=== PATIENT | female | born 1990 | race American Indian/Alaskan Native ===

== ENCOUNTER 2020-05-31 05:58 | Outpatient (CLI) | payer OTHER ==
--- NOTE | 2020-05-31 07:42 | Ultrasound Report ---
LIMITED OB ULTRASOUND INDICATION: Vaginal bleeding, no movement FINDINGS: There is a single intrauterine in a breech presentation. Amniotic fluid index is 16.1 cm. T he placenta is located in the right lateral uterus. The placenta is grade 2. No previa is seen. Cervix measures 4.1 cm in length. There is no evidence of abruption. heart rate is 154 bpm. IMPRESSION: No abruption or previa is seen. heart rate is 154 bpm. Amniotic fluid index is 16.1 cm BIOPHYSICAL PROFILE INDICATION: No movement, vaginal bleeding COMPARISON: None FINDINGS: breathing movement: 2/2 movement: 2/2 posture and tone: 2/2 Qualitative amniotic fluid volume: 2/2 IMPRESSION: Total score for biophysical profile is 8/8 heart rate is 154 bpm Signer Name: Stoney Watson MD Signed: 05/31/2020 7:38 AM Workstation Name: [id number]
[2020-05-31 08:31] VITALS: BP 132/73
[2020-05-31 08:45] LABS: Bacteria,Urine 1+ /HPF (Negative); Bilirubin,Urine NEG (Negative); Blood,Urine LG (Negative); Color,Urine Yellow (Yellow); Hyaline Casts,Urine 1 /LPF; Mucus,Urine 1+ /HPF; Protein,Urine <15 mg/dL mg/dL (Negative); Urobilinogen,Urine < 2.0 mg/dL (<2.0)
== END 2020-05-31 09:25 | disposition home or self-care (01) ==
LOC: TRG 05:58 → APU 06:09 → TRG 09:25
PROVIDERS: ATTEND Obstetrics & Gynecology
DX: O46.8X3 Other antepartum hemorrhage, third trimester (principal); Z3A.35 35 weeks gestation of pregnancy
CPT/HCPCS: 59025; 76815; 76819; 81001

== ENCOUNTER 2020-07-01 23:24 | Outpatient (CLI) | payer OTHER ==
[2020-07-02 00:36] VITALS: BP 124/79
== END 2020-07-02 00:44 | disposition home or self-care (01) ==
LOC: APU 07-02 00:19 → TRG 07-02 00:44
PROVIDERS: ATTEND Obstetrics & Gynecology
DX: O26.893 Other specified pregnancy related conditions, third trimester (principal); R06.02 Shortness of breath; Z3A.39 39 weeks gestation of pregnancy
CPT/HCPCS: 59025

== ENCOUNTER 2020-07-11 11:02 | Outpatient (CLI) | payer OTHER ==
[2020-07-11 14:55] VITALS: BP 132/60
--- NOTE | 2020-07-11 16:49 | Ultrasound Report ---
ULTRASOUND OBSTETRIC LIMITED ULTRASOUND BIOPHYSICAL PROFILE INDICATION / CLINICAL INFORMATION: vaginal bleeding. Clinical Gestational Age (GA): 40 weeks 6.days COMPARISON: 05/31/2020 FINDINGS: There is a single intrauterine . Biparietal Diameter = 9.1 cm = 36 weeks 5.days Head Circumference = 32.8 cm = 37 weeks. 2 days Abdominal Circumference = 33.1 cm = 37 weeks 0.days Femur Length = 8 cm = 40 weeks. 6 days Average Ultrasound Age (AUA) = 38 weeks. 0 days Heart Rate: 143 beats per minute. Estimated Weight in grams (if calculated): 3356 BREATHING MOVEMENT = 2 GROSS BODY MOVEMENT = 2 TONE = 2 QUALITATIVE AMNIOTIC FLUID VOLUME = 2 TOTAL BIOPHYSICAL SCORE = 8/8 AMNIOTIC FLUID INDEX (cm) = 9.1 (normal = 7-24 cm) PRESENTATION: Cephalic. ADDITIONAL FINDINGS: None. IMPRESSION: 1. Single, living intrauterine with estimated sonographic age of 38 weeks. 0 days 2. Biophysical Score = 8/8 3. No significant sonographic abnormality. Signer Name: Erik Godwin MD Signed: 07/11/2020 4:44 PM Workstation Name: [id number]
== END 2020-07-11 15:50 | disposition home or self-care (01) ==
LOC: TRG 11:02 → APU 11:02 → TRG 15:50
PROVIDERS: ATTEND Obstetrics & Gynecology
DX: O46.93 Antepartum hemorrhage, unspecified, third trimester (principal); Z3A.38 38 weeks gestation of pregnancy
CPT/HCPCS: 59025; 76816; 76819